=== PATIENT | male | born 1960 | race Two or more races ===

== ENCOUNTER 2024-05-16 09:37 | Emergency (ER) | payer OTHER ==
[2024-05-16 09:57] VITALS: TEMP 97.1; BMI 29.5
[2024-05-16 10:38] LABS: BASO % 0.3 % (0-2.0); EOS % 2.5 % (0-4.5); HEMATOCRIT 46.1 % (35.4-49); HEMOGLOBIN 15.3 GM/dL (11.7-16.9); MCH 27.4 pg (25.7-33.7); MCHC 33.3 g/dl (32.0-35.9); MEAN CELL VOLUME 82.3 fl (80-96); MEAN PLT VOLUME 7.4 fl (7.5-11.1); MONO % 8.1 % (3.8-10.2); NEUT % 72.1 % (42.8-82.8); PLATELET COUNT 218 10^3/uL (134-434); RBC 5.61 M/mm3 (4.00-5.60); RDW 14.5 % (11.9-15.9)
[2024-05-16 10:42] LABS: INR 0.96 (0.83-1.09); PROTHROMBIN TIME (PATIENT) 11.1 SEC (9.7-13.0)
[2024-05-16 10:45] LABS: ACTIVATED PTT 27.7 SECONDS (25.2-36.5)
[2024-05-16 11:02] LABS: POTASSIUM 4.8 mmol/L (3.5-5.1)
[2024-05-16 11:04] LABS: CALCIUM 9.6 mg/dL (8.5-10.1)
[2024-05-16 11:05] LABS: ALBUMIN 4.3 g/dl (3.4-5.0); BLOOD UREA NITROGEN 21.9 mg/dL (7-18)
[2024-05-16 11:08] LABS: CREATININE 1.2 mg/dL (0.55-1.3)
[2024-05-16 11:09] LABS: BILIRUBIN,TOTAL 0.6 mg/dL (0.2-1)
[2024-05-16 11:10] LABS: TOT PROT 7.7 g/dl (6.4-8.2)
[2024-05-16 11:14] LABS: MAGNESIUM 2.5 mg/dL (1.8-2.4)
[2024-05-16 13:34] VITALS: BP 141/96; PULSE 67; RESP 16
== END 2024-05-16 14:28 | disposition home or self-care (01) ==
LOC: JER 09:37
DX: R55 Syncope and collapse (principal); R42 Dizziness and giddiness
CPT/HCPCS: 36415; 71045-TC-FY; 80053; 82962; 83735; 84484; 85025; 85379; 85610; 85730; 86850; 86900; 86901; 93005; 93010; 99285-25